=== PATIENT | female | born 1950 | race Caucasian/White ===

== ENCOUNTER 2024-11-01 13:07 | Outpatient (RCR) | payer MEDICARE, SELFPAY ==
--- NOTE | 2024-10-26 11:31 | CTCCONSULT_ITS ---
[facility] [address] [place], [place] [address] Consultation Note Date: 10/26/2024 MR#: [id number] Name: JELENA PATEL : 1950 Dx: C25.9 Malignant neoplasm of pancreas, unspecified Primary care physician. Kvng Cano MD [place] Referring physician. Cydney Pacheco MD [facility] Reason for consultation. Pancreatic cancer History of Present Illness: Patient is a 74-year-old lady who with abdominal discomfort had imaging studies 05/20/2024 showing hypodense mass in pancreatic head atrophy of body and tail and dilatation of main pancreatic duct and biliary duct along with lesion L4 vertebral body. EUS biopsy was consistent with adenocarcinoma. 06/07/2024 PET scan showed no metastatic disease. CA 19?initially 19,000 and patient started modified FOLFIRINOX as neoadjuvant chemo and thus far received 7 cycles last about a week ago. CA 19?9 went down to 268. CT scan 09/2024 showed much improvement. MRI 10/05/2024 showed no evidence of mets in the lumbar area. Patient had mild to moderate symptoms but generally tolerate chemo well with occasional rest due to myelosuppression. Patient be scheduled for radiosensitizer xeloda during radiation according to patient. Past Medical History: High blood pressure thyroid disease diabetes Meds. Onida meclizine Lantus insulin amitriptyline gabapentin lactulose Allergies Bactrim CoQ10 Family history. Denies GI cancer in family Social History: Patient retired from [employer]; social drinker non-smoker Review of Systems: Has had cold heat intolerance he fever nausea no significant weight loss Physical Exam: General: Well-appearing lady no acute distress HEENT: Eyes nonicteric no oral lesions no cervical or supra given apathy CV: Chest clear to auscultation heart regular rate and rhythm ABD: Soft no organomegaly tenderness EXT: No sinus clubbing or edema Assessment:1. Patient with pancreatic CA with good response after 7 cycles of modified FOLFIRINOX at [facility], completed 1 week ago. CA 19?9 has come down significantly with improved imaging studies. No sign of any distant mets. 2. Patient not being considered for surgery so will get radiation therapy. 6144-6640 cGy via modern VMAT will be offered patient. Estimate the starting date will be 08 November and last for about 5 - 6 weeks, mid December prior to Thanksgiving 3. Thank you very much for allowing me to evaluate and manage this patient Cc: MD Cydney Whaley MD [facility] Electronically signed by: Param Lynn MD, DABR 10/26/2024 11:29 AM
--- NOTE | 2024-10-26 11:32 | CTCTXPLN_ITS ---
[facility] [address] [place], [place] [address] Physician Clinical Treatment Planning Note Date of Service: 10/26/2024 Name: JELENA PATEL : 1950 The patient has agreed to proceed with Radiation therapy. Tests and supporting medical records were interpreted to assist in defining the tumor location and extent of disease. Further imaging will be necessary to contour and delineate the volume to which the XRT will be provided. A. Treatment Intent: Curative B. Modality: 10 MV C. Requested Technique: VMAT D. Treatment Site: Abdomen E. Critical structures to be contoured on plan: F. In order to accomplish this plan, I am ordering/Prescribing the followin. Simulations (s) will be performed to accomplish a reproducible treatment position, to determine optimal treatment portals/beam arrangements, to design beam modifying devices and verify treatment portals on patient prior to the commencement of Radiation Therapy. Abdomen 2. Devices; for immobilization and beam shaping: Vac-Lashae 3. CT Guidance for placement of XRT soriano Scan area: 4. Portal images Frequency: 5. Invivo transit dose measurement once per week on all VMAT patients. 6. Special Physics Consult Requested for: 7. Other requests: chemoradiation G. Dose Objectives: Curative Electronically signed by: Param Lynn M.D. 10/26/2024 11:30 AM
--- NOTE | 2024-10-26 11:34 | CTCTXPLNST_ITS ---
Radiation Oncology Treatment Planning Sheet Name: JELENA PATEL MR#: [id number] : 1950 Dx: C25.9 Malignant neoplasm of pancreas, unspecified Date of Service: 10/26/2024 Account #: ?? Pt Treatment Intent: curative palliative other: Stage: Procedure CPT # Ordered Spec. Procedure 94107 1 Lerner Complex (set-up) 29474 T 10 ? L3 abdomen 1 Lerner Simple 69562 IMRT Plan 97574 1 MLC Devices VMAT 63053 3 Lerner 3 D 96062 TRTMT dev Complex 37517 vaklok 1 TRTMT dev simple 42029 Basic Manpreet 48300 9 Special Dosimetry 59103 Spec Physics 90701 Port Films 59557 SRS Cranial/1FX 37774 SBR 5 FX or Less /ex: 5 = 5 fx 35667 IMRT Simple 22363 5040 28 IMRT Complex 25510 IGRT 54910 28 Rad del [employer] 6-10 31896 Rad del [employer] 11 93487 Cont Med Physics 53469 5 Treatment Planning 48411 1 Weekly Evaluation 00546 5 Rad del [employer] 20 mev 91533 Special Port Plan 64454 TRTMT dev inter 86979 Isodose Complex 51169 Isodose simple 26956 Resp Motion Mgmt Simulation 30154 Placement of Fiducial Markers 31477 Electronically Signed By: Param Lynn MD, OSCARR 10/26/2024 11:32 AM
== END 2024-11-07 23:59 | disposition home or self-care (01) ==
LOC: SCTC 13:07
PROVIDERS: PCP Family Medicine; Referring Provider Internal Medicine; Visit Provider Radiology Therapeutic Radiology
DX: C25.9 Malignant neoplasm of pancreas, unspecified (principal)
CPT/HCPCS: 77014; 77290; 77300; 77301; 77334; 77338; 99213; G0463

== ENCOUNTER 2024-12-07 13:56 | Outpatient (RCR) | payer MEDICARE, SELFPAY | END 2024-12-08 23:59 | disposition home or self-care (01) | LOC: SCTC 13:56 | PROVIDERS: PCP Family Medicine; Referring Provider Family Medicine; Visit Provider Radiology Therapeutic Radiology | DX: Z51.0 Encounter for antineoplastic radiation therapy (principal); C25.7 Malignant neoplasm of other parts of pancreas; R53.83 Other fatigue; R19.7 Diarrhea, unspecified; R63.4 Abnormal weight loss; Z68.23 Body mass index [BMI] 23.0-23.9, adult | CPT/HCPCS: 77336; 77385 ==

== ENCOUNTER 2024-12-27 13:52 | Outpatient (RCR) | payer MEDICARE, SELFPAY ==
--- NOTE | 2024-12-20 16:45 | CTCTRTNOTE_ITS ---
[facility] [address] [place], [place] [address] Weekly Management Date: 12/20/2024 ?? Name: JELENA PATEL : 1950 A. Patient is currently at 4140 cGy. Resuming treatments after being off for past 2 weeks. B. Unable to see patient today will attempt to catch her tomorrow. Appearing well enough to resume treatment today. Electronically signed by: Param Lynn M.D. 12/20/2024 4:43 PM
== END 2025-01-07 23:59 | disposition home or self-care (01) ==
LOC: SCTC 13:52
PROVIDERS: PCP Family Medicine; Referring Provider Family Medicine; Visit Provider Radiology Therapeutic Radiology
DX: Z51.0 Encounter for antineoplastic radiation therapy (principal); C25.7 Malignant neoplasm of other parts of pancreas
CPT/HCPCS: 77336; 77385

== ENCOUNTER 2025-01-09 13:08 | Outpatient (RCR) | payer MEDICARE, SELFPAY ==
--- NOTE | 2025-01-09 14:13 | CTCTSUMM_ITS ---
[facility] [address] [place], [place] [address] Treatment Summary Date: 01/09/2025 MR#: [id number] Name: JELENA PATEL : 1950 Dx: C25.9 Referring Physician: Taryn Pacheco MD (A) Diagnosis: [ICD10] C25.9 Malignant neoplasm of pancreas, unspecified (B) Aim of Treatment: ?? (C) Concomitant Chemotherapy: Yes (D) Radiation Dates: 11/08/2024 through 12/27/2024 Treatment Prescription abdomen VMAT 10MV 5,040 cGy 28 180 cGy Approved (E) All soriano were treated using customized MLC Blocks (F) Finding at Discharge: Patient seen for first follow-up on 01/09/2025. Patient had some GI symptoms during treatment including loose bowels which generally improved after treatments were stopped 2 weeks ago. (G) Discharge Instructions and F/U Appt was given: The patient was also advised to continue follow-up with Dr. Pacheco and primary care physician: Cc: Taryn Pacheco MD Electronically signed by: Param Lynn MD, DABR 01/09/2025 2:11 PM
== END 2025-02-07 23:59 | disposition home or self-care (01) ==
LOC: SCTC 13:08
PROVIDERS: PCP Family Medicine; Referring Provider Family Medicine; Visit Provider Radiology Therapeutic Radiology
DX: C25.9 Malignant neoplasm of pancreas, unspecified (principal); Z92.3 Personal history of irradiation
CPT/HCPCS: 99212; G0463